=== PATIENT | male | born 1985 | race Asian ===

== ENCOUNTER 2020-12-10 02:54 | Emergency (ER) | payer OTHER ==
[~2020-12-10] VITALS: Ht 165.1 cm; Wt 69.5 kg
[2020-12-10] MEDS ORDERED: ALLO100T PO (03:22)
[2020-12-10] MEDS ORDERED: INDO-16 PO (03:23)
[2020-12-10 07:39] LABS: BASO % 0.2 % (0.0-1.0); EOS # 0.1 10^3/uL (0.0-0.5); EOS % 1.4 % (0.0-3.0); HEMATOCRIT 41.1 % (42.0-52.0); LYMPH # 1.9 10^3/uL (1.5-5.0); LYMPH % 20.3 % (24.0-44.0); MEAN CORPUSCULAR HEMOGLOBIN 30.4 pg (27.0-33.0); MEAN CORPUSCULAR HGB CONC 34.1 g/dl (32.0-36.5); MEAN CORPUSCULAR VOLUME 89.2 fl (80.0-96.0); MONO # 0.7 10^3/uL (0.0-0.8); MONO % 7.6 % (0.0-5.0); NEUTROPHILS # 6.4 10^3/uL (1.5-8.5); NEUTROPHILS % 70.1 % (36.0-66.0); PLATELET COUNT, AUTOMATED 199 10^3/uL (150-450); RED BLOOD COUNT 4.61 10^6/uL (4.30-6.10); WHITE BLOOD COUNT 9.2 10^3/uL (4.0-10.0)
[2020-12-10] MEDS ORDERED: PRED20TA PO (07:55)
[2020-12-10 08:01] LABS: BLOOD UREA NITROGEN 9 MG/DL (7-18); CARBON DIOXIDE LEVEL 29 MEQ/L (21-32); CHLORIDE LEVEL 109 MEQ/L (98-107); CREATININE FOR GFR 1.05 MG/DL (0.70-1.30); GLOMERULAR FILTRATION RATE > 60.0 (>60); GLUCOSE, FASTING 101 MG/DL (70-100); POTASSIUM SERUM 4.5 MEQ/L (3.5-5.1); SODIUM LEVEL 144 MEQ/L (136-145); URIC ACID 7.2 MG/DL (3.5-7.2)
--- OUTSIDE RECORDS SUMMARY | 2020-12-10 08:05 | CCD ---
Author Author [facility] Address Unknown Phone Unavailable Support Name Relationship Address Phone [facility] Next Of Kin [address] [place] [address] Unavailable Re-disclosure Warning The records that you are about to access may contain information from federally-assisted alcohol or drug abuse programs. If such information is present, then the following federally mandated warning applies: This information has been disclosed to you from records protected by federal confidentiality rules (42 CFR part 2). The federal rules prohibit you from making any further disclosure of this information unless further disclosure is expressly permitted by the written consent of the person to whom it pertains or as otherwise permitted by 42 CFR part 2. A general authorization for the release of medical or other information is NOT sufficient for this purpose. The Federal rules restrict any use of the information to criminally investigate or prosecute any alcohol or drug abuse patient.The records that you are about to access may contain highly sensitive health information, the redisclosure of which is protected by Article 27-F of the [facility] Public Health law. If you continue you may have access to information: Regarding HIV / AIDS; Provided by facilities licensed or operated by the [facility] Office of Mental Health; or Provided by the [facility] Office for People With Developmental Disabilities. If such information is present, then the following [facility] mandated warning applies: This information has been disclosed to you from confidential records which are protected by state law. State law prohibits you from making any further disclosure of this information without the specific written consent of the person to whom it pertains, or as otherwise permitted by law. Any unauthorized further disclosure in violation of state law may result in a fine or long-term sentence or both. A general authorization for the release of medical or other information is NOT sufficient authorization for further disc losure. Insurance Providers Payer name Policy type / Coverage type Policy ID Covered alliance party ID Covered alliance party's relationship to yee Policy Yee Plan Information [facility] ACTIVE DUTY [id number]
[2020-12-10] MEDS: predniSONE 20 MG TAB PO ONE (08:18)
[2020-12-10 10:18] VITALS: BP 112/82
== END 2020-12-10 10:20 | disposition home or self-care (01) ==
LOC: M ED 02:54
DX: M10.9 Gout, unspecified (principal); Z79.899 Other long term (current) drug therapy

== ENCOUNTER 2020-12-30 21:16 | Emergency (ER) | payer OTHER ==
[~2020-12-30] VITALS: Ht 170.2 cm; Wt 68.3 kg
[~2020-12-30 21:16] MED LIST: ALLO100T PO; INDO-16 PO; PRED20TA PO
--- OUTSIDE RECORDS SUMMARY | 2020-12-30 21:30 | CCD ---
Author Author [facility] Address Unknown Phone Unavailable Support Name Relationship Address Phone [facility] Next Of Kin [address] [place] [address] Unavailable Re-disclosure Warning The records that you [...] is protected by Article 27-F of the [facility] Public Health law. If you continue you may have access to information: Regarding HIV / AIDS; Provided by facilities licensed or operated by the [facility] Office of Mental Health; or Provided by the [facility] Office for People With Developmental Disabilities. If such information is present, then the following [facility] mandated warning applies: This information has been [...] law may result in a fine or snf sentence or both. A general authorization for the release of medical or other information is NOT sufficient authorization for further disc losure. Insurance Providers Payer name Policy type / Coverage type Policy ID Covered constitution party ID Covered constitution party's relationship to yee Policy Yee Plan Information [facility] ACTIVE DUTY [id number]
[2020-12-30 22:28] LABS: BASO # 0.1 10^3/uL (0.0-0.2); BASO % 0.5 % (0.0-1.0); EOS # 0.2 10^3/uL (0.0-0.5); EOS % 2.3 % (0.0-3.0); HEMATOCRIT 43.7 % (42.0-52.0); HEMOGLOBIN 14.4 g/dl (13.5-17.5); LYMPH # 2.6 10^3/uL (1.5-5.0); LYMPH % 27.5 % (24.0-44.0); MEAN CORPUSCULAR HEMOGLOBIN 29.7 pg (27.0-33.0); MEAN CORPUSCULAR VOLUME 90.1 fl (80.0-96.0); MONO # 0.6 10^3/uL (0.0-0.8); MONO % 6.6 % (0.0-5.0); NEUTROPHILS # 5.9 10^3/uL (1.5-8.5); NEUTROPHILS % 62.9 % (36.0-66.0); PLATELET COUNT, AUTOMATED 213 10^3/uL (150-450); RED BLOOD COUNT 4.85 10^6/uL (4.30-6.10); WHITE BLOOD COUNT 9.4 10^3/uL (4.0-10.0)
[2020-12-30] MEDS ORDERED: INDOMETHACIN 25 MG CAP PO ONE (22:30)
[2020-12-30 22:45] LABS: ERYTHROCYTE SEDIMENTATION RATE 6 mm/hr (0-15)
--- OUTSIDE RECORDS SUMMARY | 2020-12-30 22:48 | CCD ---
Author Author [facility] Address Unknown Phone Unavailable Support Name Relationship Address Phone [facility] Next Of Kin [address] [place] [address] Unavailable Re-disclosure Warning The records that you [...] is protected by Article 27-F of the [facility] Public Health law. If you continue you may have access to information: Regarding HIV / AIDS; Provided by facilities licensed or operated by the [facility] Office of Mental Health; or Provided by the [facility] Office for People With Developmental Disabilities. If such information is present, then the following [facility] mandated warning applies: This information has [...] law may result in a fine or fci sentence or both. A general authorization for the release of medical or other information is NOT sufficient authorization for further disc losure. Insurance Providers Payer name Policy type / Coverage type Policy ID Covered alliance party ID Covered alliance party's relationship to yee Policy Yee Plan Information [facility] ACTIVE DUTY [id number]
[2020-12-30 23:03] LABS: ALBUMIN 4.2 GM/DL (3.2-5.2); BILIRUBIN,DIRECT 0.1 MG/DL (0.0-0.2); BILIRUBIN,TOTAL 0.5 MG/DL (0.2-1.0); C REACTIVE PROTEIN QUANTITATIV 0.81 MG/DL (0.00-0.30); TOTAL PROTEIN 7.5 GM/DL (6.4-8.2); URIC ACID 9.8 MG/DL (3.5-7.2)
--- NOTE | 2020-12-30 23:15 | REPVR ---
PROCEDURE INFORMATION: Exam: XR Left Foot Exam date and time: 12/30/2020 10:24 PM Age: 35 years old Clinical indication: Top mid foot pain, no mechanism of injury, HX gout. TECHNIQUE: Imaging protocol: XR Left foot. Views: 3 or more views. COMPARISON: No relevant prior studies available. FINDINGS: Bones/joints: There is no fracture, dislocation, or bony destructive changes. The joint spaces and alignment are preserved. No erosive or bony proliferative changes are noted. There is a posterior calcaneal spur at the insertion of the Achilles tendon, which is compatible with a left Achilles enthesopathy. There is a well-corticated accessory ossicle medial to the navicular, which represents an os navicularis. Soft tissues: No soft tissue tophi are identified. IMPRESSION: No acute findings in the left foot. Electronically signed by: Andre Robles On 12/30/2020 23:15:08 PM
[2020-12-30] MEDS ORDERED: COLCHICINE 0.6 MG TABLET PO ONE (23:30)
[2020-12-30] MEDS ORDERED: NORCO, ANEXSIA 5/325MG TABLET (HYDROcodone/ACETAMINOPHEN) PO ONE (23:45)
--- NOTE | 2020-12-30 23:54 | REPVR ---
PROCEDURE INFORMATION: Exam: CT Left Lower Extremity Without Contrast, Foot Exam date and time: 12/30/2020 11:26 PM Age: 35 years old Clinical indication: Pain; Foot; Left; Additional info: Pain out of proportion, mid foot pain, no mechanism of injury, HX of gout TECHNIQUE: Imaging protocol: CT of the Left lower extremity without contrast was performed. Exam focused on the foot. Radiation optimization: All CT scans at this facility use at least one of these dose optimization techniques: automated exposure control; mA and/or kV adjustment per patient size (includes targeted exams where dose is matched to clinical indication); or iterative reconstruction. COMPARISON: CR Foot, complete LEFT 12/30/2020 10:18 PM FINDINGS: Bones/joints: There is no fracture, dislocation, or bony destructive changes involving the left foot. There is no CT evidence for a bone tumor. The joint spaces and alignment are preserved. No arthropathy is noted. There is a well-corticated accessory ossicle medial to the navicular, which represents an os navicularis. Incidental note is made of a small well corticated accessory ossicle adjacent to the anterior process of the calcaneus, which represents an os calcaneus secundarius. Soft tissues: There is a posterior calcaneal spur at the insertion of the Achilles tendon, which is compatible with a left Achilles enthesopathy. No soft tissue fluid collection or soft tissue tophi are seen. No soft tissue gas is present. IMPRESSION: No acute findings in the left foot. Electronically signed by: Andre Robles On 12/30/2020 23:54:29 PM
[2020-12-31] MEDS ORDERED: NAPR-837 PO (00:09)
[2020-12-31] MEDS ORDERED: COLC0.6T47 PO (00:09)
[2020-12-31] MEDS ORDERED: HYDR-3713 PO (01:29)
[2020-12-31 01:45] VITALS: BP 130/76
== END 2020-12-31 02:02 | disposition home or self-care (01) ==
LOC: M ED 21:16
DX: M79.672 Pain in left foot (principal); M10.9 Gout, unspecified

== ENCOUNTER 2021-06-24 16:01 | Emergency (ER) | payer OTHER ==
[~2021-06-24] VITALS: Ht 170.2 cm; Wt 65.5 kg
[~2021-06-24 16:01] MED LIST changes: +COLC0.6T47 PO; +HYDR-3713 PO; +NAPR-837 PO
[2021-06-24 17:44] LABS: BASO % 0.3 % (0.0-1.0); EOS # 0.1 10^3/uL (0.0-0.5); EOS % 1.2 % (0.0-3.0); HEMATOCRIT 41.6 % (42.0-52.0); HEMOGLOBIN 14.3 g/dl (13.5-17.5); LYMPH # 2.2 10^3/uL (1.5-5.0); MEAN CORPUSCULAR HEMOGLOBIN 30.8 pg (27.0-33.0); MEAN CORPUSCULAR HGB CONC 34.4 g/dl (32.0-36.5); MEAN CORPUSCULAR VOLUME 89.5 fl (80.0-96.0); MONO # 0.5 10^3/uL (0.0-0.8); MONO % 7.1 % (2.0-8.0); NEUTROPHILS # 4.7 10^3/uL (1.5-8.5); NEUTROPHILS % 62.3 % (36.0-66.0); PLATELET COUNT, AUTOMATED 197 10^3/uL (150-450); RED BLOOD COUNT 4.65 10^6/uL (4.30-6.10); WHITE BLOOD COUNT 7.5 10^3/uL (4.0-10.0)
[2021-06-24 18:22] LABS: BLOOD UREA NITROGEN 8 MG/DL (7-18); CALCIUM LEVEL 8.9 MG/DL (8.5-10.1); CARBON DIOXIDE LEVEL 31 MEQ/L (21-32); CHLORIDE LEVEL 107 MEQ/L (98-107); CREATININE FOR GFR 0.82 MG/DL (0.70-1.30); GLOMERULAR FILTRATION RATE > 60.0 (>60); GLUCOSE, FASTING 90 MG/DL (70-100); POTASSIUM SERUM 4.3 MEQ/L (3.5-5.1); SODIUM LEVEL 144 MEQ/L (136-145); URIC ACID 4.4 MG/DL (3.5-7.2)
--- NOTE | 2021-06-24 19:27 | REP ---
INDICATION: pain /swelling COMPARISON: None. TECHNIQUE: Four views right ankle. FINDINGS: There is no evidence of acute fracture, dislocation, or intrinsic bone disease.The ankle mortise is anatomic. IMPRESSION: No fracture or dislocation. <Electronically signed by Darian Rajput > 06/24/21 2099
[2021-06-24] MEDS ORDERED: INDO50CA91 PO (19:50)
[2021-06-24] MEDS ORDERED: INDOMETHACIN 25 MG CAP PO ONE (19:50)
[2021-06-24 20:21] VITALS: BP 122/79
== END 2021-06-24 20:24 | disposition home or self-care (01) ==
LOC: M ED 16:01
DX: M10.9 Gout, unspecified (principal); Z79.899 Other long term (current) drug therapy

== ENCOUNTER → 2021-07-30 | Outpatient (CLI) | payer OTHER ==
[~2021-07-30] MED LIST changes: +INDO50CA91 PO
== END ==
LOC: M WUC 11:52
PROVIDERS: ATTEND Internal Medicine
DX: M1A.9XX0 Chronic gout, unspecified, without tophus (tophi) (principal)

== ENCOUNTER 2021-09-28 08:24 | Emergency (ER) | payer OTHER ==
[~2021-09-28] VITALS: Ht 170.2 cm; Wt 65.5 kg
[2021-09-28] MEDS ORDERED: CELE1CAP7 PO (08:28)
--- OUTSIDE RECORDS SUMMARY | 2021-09-28 08:30 | CCD ---
Author Author [facility] Organization [facility] Address Unknown Phone Unavailable Care Team Providers Care Ring Conductor Name Role Phone Yoanna Siu Unavailable PROBLEMS Type Condition ICD9-CM Code [id number] Code Onset Dates Condition S tatus W/U Status Risk SNOMED Code Notes Problem Chronic gout without tophus, unspecified cause, unspecified site M1A.9XX0 Active confirmed [id number] ALLERGIES No Known Allergies ENCOUNTERS from 1984 to 2021-08-24 Encounter Location Date Provider Diagnosis [facility] Rheumatology [address] [facility] [phone] [place] [address] Jul, Yoanna Siu Chronic gout without tophus, unspecified cause, unspecified site M1A.9XX0 ; Chronic gout of right ankle, unspecified cause M1A.0710 ; Osteoarthritis of ankle and foot, 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 No Points 0 Interpretation Negative Tobacco Use: Question Answer Notes Are you a: never smoker REASON FOR REFERRAL No Information VITAL SIGNS Weight 146.6 lbs Jul, Weight-kg 66.5 kg Jul, Height 67 in Jul, BMI 22.96 kg/m2 Jul, Heart Rate 78 /min Jul, Respiratory Rate 16 /min Jul, Temperature 98.4 degrees Fahrenheit Jul, Oximetry 97 Jul, Blood pressure systolic 110 mm Hg Jul, Blood pressure diastolic 70 mm Hg Jul, MEDICATIONS Medication SIG (Take, Route, Frequency, Duration) Notes Start Da te End Date Status Allopurinol 100 MG 1 tablet Orally three times a day Not-Taking Allopurinol 100 MG 2 tablets Orally Once a day for 30 days Feb, Active Celecoxib 100 MG 1 capsule with food Orally Once a day for 30 day(s) Active predniSONE 20 MG 2 tablets Orally Once a day for 5 day(s) Jan, Not-Taking Colchicine 0.6 MG 1 tablet Orally Once a day for 30 days 2 9 Feb, 2021 Active Allopurinol 300 MG 1 tablet Orally Once a day Feb, Active PROCEDURES No Information RESULTS No Results REASON FOR VISIT Kb presents today for follow up. He did have a flare about a month ago as he hadn't been taking his medication. He feels the flare came because he works out too much. He saw on-call at [facility], restarted his medication and impro ed. No changes with right hip from last visit. MEDICAL (GENERAL) HISTORY Type Description Date Medical History Flat Foot Medical History Gout Medical History Tuberculosis of the lung Medical History Nonspecified reaction to tub erculin skin test without active tuberculosis Surgical History None per patient 01/30/2021 Hospitalization History None per patient 01/30/2021 Hospitalization History [facility] ER for gout 06/2021 Goals Section No Information Health Concerns No Information MEDICAL EQUIPMENT No Information MENTAL STATUS No Information FUNCTIONAL STATUS No Information ASSESSMENTS Encounter Date Diagnosis Assessment Notes Treatment Notes Treatm ent Clinical Notes Jul, Chronic gout without tophus, unspecified cause, unspecified site (ICD-10 - M1A.9XX0) Clinical presentation consistent with poorly controlled gout, who presents w/ a chronic gout flare, in need of more aggressive intervention. - Discussed the importance of lifestyle interventions in detail and medications to adequate treat gout. - Continue Colchicine 0.6 mg daily; will increase Allopurinol 400 mg daily to 500 mg daily. - Continue Celecoxib 100 mg daily given the high gastric ulcer risk and the safety profile of the medication. He would benefit from a low dose GODINEZ-2 inhibitor, the benefits of the Celebrex outweigh the risks of the medication. - He was agreeable and expressed understanding of the plan. All questions and concerns were addressed. Jul, Chronic gout of right ankle, unspecified cause (ICD-10 - M1A.0710) Improvement in the right ankle s/p corticosteroid injection (on 04/06/2021); will monitor the symptomatology closely. Jul, Osteoarthritis of ankle and foot, unspecified laterality (ICD-10 - M19.079) Previously reviewed x-ray of right foot/ankle (01/08/2021); the patient has degenerative changes in the ankles and feet. Continue the performance of the ankle/foot exercises for approximately 5 minutes daily. Jul, Trochanteric bursitis, unspecified laterality (I CD-10 - M70.60) Clinical presentation consistent w/ trochanteric bursitis of the right hip. Strongly encouraged the performance of the exercises (3x/week for approximately 15 minutes). If there is no significant improvement with the exercises, then will consider physical therapy for improvement in the symptomatology. PLAN OF TREATMENT Medication Medication Name Sig Start Date Stop Date Celecoxib 100 MG 1 capsule with food Orally Once a day for 30 da y(s) Allopurinol 300 MG 1 tablet Orally Once a day Feb, Allopurinol 100 MG 2 tablets Orally Once a day for 30 days 2020 Treatment Notes Assessment Notes Clinical Notes Chronic gout without tophus, unspecified cause, unspecified site Clinical presentation consistent with poorly controlled gout, who presents w/ a chronic gout flare, in need of more aggressive intervention.- Discussed the importance of lifestyle interventions in detail and medications to adequate treat gout.- Continue Colchicine 0.6 mg daily; will increase Allopurinol 400 mg daily to 500 mg daily.- Continue Celecoxib 100 mg daily given the high gastric ulcer risk and the safety profile of the medication. He would benefit from a low dose GODINEZ-2 inhibitor, the benefits of the Celebrex outweigh the risks of the medication.- He was agreeable and expressed understanding of the plan. All questions and concerns were addressed. Chronic gout of right ankle, unspecified cause Improvement in the right ankle s/p corticosteroid injection (on 04/06/2021); will monitor the symptomatology closely. Osteoarthritis of ankle and foot, unspecified laterality Previously reviewed x-ray of right foot/ankle (01/08/2021); the patient has degenerative changes in the ankles and feet. Continue the performance of the ankle/foot exercises for approximately 5 minutes daily. Trochanteric bursitis, unspecified laterality Clinical presentation consistent w/ trochanteric bursitis of the right hip. Strongly encouraged the performance of the exercises (3x/week for approximately 15 minutes). If there is no significant improvement with the exercises, then will consider physical therapy for improvement in the symptomatology. Next Appt Details Provider Name:Yoanna Siu, 2021-11-06 10:15:00 AM, [address] [place] [address], , [place], [place], [facility], Insurance Providers Payer Name Payer Address Payer Phone Insured Name Patient Relati onship to Insured Coverage Start Date Coverage End Date [facility] ACTIVE DUTY S HEALTH INSURANCE [address] [facility] [address] KB MCCLELLAN self
--- OUTSIDE RECORDS SUMMARY | 2021-09-28 08:30 | CCD ---
Author Author [facility] Organization [facility] Address Unknown Phone Unavailable Care Team Providers Care Clay Digger Name Role Phone Yoanna Siu PROBLEMS Type Condition ICD9-CM Code [id number] Code Onset Dates Condition S tatus W/U Status Risk SNOMED Code Notes Problem Chronic gout without tophus, unspecified cause, unspecified site M1A.9XX0 Active confirmed [id number] ALLERGIES No Known Allergies ENCOUNTERS from 1984 to 2021-09-01 Encounter Location Date Provider Diagnosis [facility] Rheumatology [address] [facility] [phone] [place] [address] Aug, Yoanna Siu Chronic gout without tophus, unspecified cause, unspecified site M1A.9XX0 IMMUNIZATIONS No Information SOCIAL HISTORY Tobacco Use: [...] REASON FOR REFERRAL No Information VITAL SIGNS No information MEDICATIONS Medication SIG (Take, Route, Frequency, Duration) Notes Start Da te End Date Status Allopurinol 100 MG 1 tablet Orally three times a day Not-Taking Allopurinol 100 MG 2 tablets Orally Once a day for 30 days Feb, Active Celecoxib 100 MG 1 capsule with food Orally Once a day for 30 day(s) Active predniSONE 20 MG 1 tablet Orally Once a day for 5 days Aug, Active predniSONE 20 MG 2 tablets Orally Once a day for 5 day(s) Jan, Not-Taking Colchicine 0.6 MG 1 tablet Orally Once a day for 30 days 2 9 Feb, 2021 Active Allopurinol 300 MG 1 tablet Orally Once a day 15 Feb, 2021 Active Celecoxib 200 MG 1 capsule with food Orally Once a day for 30 da y(s) Aug, Active PROCEDURES No Information RESULTS No Results REASON FOR VISIT Requesting phone management or sooner visit MEDICAL (GENERAL) HISTORY Type Description Date Medical History Flat Foot Medical History Gout Medical History Tuberculosis of the lung Medical History Nonspecified reaction to tub erculin skin test without active tuberculosis Surgical History None per patient 01/30/2021 Hospitalization History None per patient 01/30/[address] [facility] ER for gout 06/2021 Goals Section No Information Health Concerns No Information MEDICAL EQUIPMENT No Information MENTAL STATUS No Information FUNCTIONAL STATUS No Information ASSESSMENTS Encounter Date Diagnosis Assessment Notes Treatment Notes Treatm ent Clinical Notes Aug, Chronic gout without tophus, unspecified cause, unspecified site (ICD-10 - M1A.9XX0) PLAN OF TREATMENT Medication Medication Name Sig Start Date Stop Date Celecoxib 100 MG 1 capsule with food Orally Once a day for 30 da y(s) Allopurinol 300 MG 1 tablet Orally Once a day Feb, Celecoxib 200 MG 1 capsule with food Orally Once a day fo r 30 day(s) Aug, Allopurinol 100 MG 2 tablets Orally Once a day for 30 days 15 2020 predniSONE 20 MG 1 tablet Orally Once a day for 5 days Aug, 021 Next Appt Details Provider Name:Yoanna Siu, 2021-11-06 10:15:00 AM, [address] [place] [address], , [place], [place], [facility], Insurance Providers Payer Name Payer Address Payer Phone Insured Name Patient Relati onship to Insured Coverage Start Date Coverage End Date [facility] ACTIVE D[employer] S [employer] INSURANCE [address] [place] [address] MUKUND MCCLELLAN self
--- OUTSIDE RECORDS SUMMARY | 2021-09-28 08:30 | CCD ---
Author Author [facility] Organization [facility] Address Unknown Phone Unavailable Care Team Providers Care Wheel Borer Name Role Phone Yoanna Siu PROBLEMS Type Condition ICD9-CM Code [id number] Code Onset Dates Condition S tatus W/U Status Risk SNOMED Code Notes Problem Chronic gout without tophus, unspecified cause, unspecified site M1A.9XX0 Active confirmed [id number] ALLERGIES No Known Allergies ENCOUNTERS from 1984 to 2021-07-20 Encounter Location Date Provider Diagnosis [facility] Rheumatology [address] [facility] [phone] [place] [address] Jun, [facility] IMMUNIZATIONS No Information SOCIAL HISTORY Tobacco Use: [...] Status Allopurinol 100 MG 1 tablet Orally Once a day for 30 day(s) Feb, Active Allopurinol 300 MG 1 tablet Orally Once a day for 30 day(s) Feb, Active Colchicine 0.6 MG 1 tablet Orally Once a day for 30 days 2 9 Feb, 2021 Active predniSONE 20 MG 2 tablets Orally Once a day for 5 day(s) Jan, Active Celecoxib 100 MG 1 capsule with food Orally Once a day for 30 day(s) Active Allopurinol 100 MG 1 tablet Orally three times a day Active PROCEDURES No Information RESULTS No Results REASON FOR VISIT Lab Order MEDICAL (GENERAL) HISTORY Type Description Date Medical History Flat Foot Medical History Gout Medical History Tuberculosis of the lung Medical History Nonspecified reaction to tub erculin skin test without active tuberculosis Surgical History None per patient 01/30/2021 Hospitalization History None per patient 01/30/2021 Goals Section No Information Health Concerns No Information MEDICAL EQUIPMENT No Information MENTAL STATUS No Information FUNCTIONAL STATUS No Information ASSESSMENTS No Information PLAN OF TREATMENT Medication Medication Name Sig Start Date Stop Date Celecoxib 100 MG 1 capsule with food Orally Once a day for 30 da y(s) Next Appt Details Provider Name:Yoanna Siu, 2021-08-04 04:45:00 PM, [address] [place] [address], [place], [place], [facility] [phone] Insurance Providers Payer Name Payer Address Payer Phone Insured Name Patient Relati onship to Insured Coverage Start Date Coverage End Date [facility] ACTIVE D[employer] S HE[employer] INSURANCE [address] [place] [address] MUKUND MCCLELLAN self
--- OUTSIDE RECORDS SUMMARY | 2021-09-28 08:30 | CCD ---
Author Author [facility] Organization [facility] Address Unknown Phone Unavailable Care Team Providers Care Welcome Wagon Host/Hostess Name Role Phone Yoanna Siu Unavailable PROBLEMS Type Condition ICD9-CM Code [id number] Code Onset Dates Condition S tatus W/U Status Risk SNOMED Code Notes Problem Chronic gout without tophus, unspecified cause, unspecified site M1A.9XX0 Active confirmed [id number] ALLERGIES No Known Allergies ENCOUNTERS from 1984 to 2021-08-03 Encounter Location Date Provider Diagnosis [facility] Rheumatology [address] [facility] [phone] [place] [address] 13 Jul, 2021 [facility] IMMUNIZATIONS No Information SOCIAL HISTORY Tobacco Use: [...] Information RESULTS No Results REASON FOR VISIT 08/04/21 reschedule appt MEDICAL (GENERAL) HISTORY Type Description Date Medical [...] 30 da y(s) Next Appt Details Provider Name:Yoannaprashant Siu, 2021-08-07 03:15:00 PM, [address] [place] [address], [place], [place], [facility], Insurance Providers Payer Name Payer Address Payer Phone Insured Name Patient Relati onship to Insured Coverage Start Date Coverage End Date [facility] ACTIVE D[employer] S [employer] INSURANCE [address] [place] [address] MUKUND MCCLELLAN self
--- OUTSIDE RECORDS SUMMARY | 2021-09-28 08:30 | CCD ---
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 Role Phone Yoanna Siu PROBLEMS Type Condition ICD9-CM Code [id number] Code Onset Dates Condition S tatus W/U Status Risk SNOMED Code Notes Problem Chronic gout without tophus, unspecified cause, unspecified site [id number] Active confirmed [id number] ALLERGIES No Known Allergies ENCOUNTERS from 1984 to 2021-08-24 Encounter Location Date Provider Diagnosis [facility] [address] [facility] [phone] [place] [address] March, Yoanna Siu Chronic gout without tophus, unspecified [...] FOR REFERRAL No Information VITAL SIGNS Weight 153.8 lbs March, Weight-kg 69.7 kg March, Height 67 in March, BMI 24.09 kg/m2 March, Heart Rate 88 /min March, Respiratory Rate 16 /min March, Temperature 99.2 degrees Fahrenheit March, Oximetry 96 March, MEDICATIONS Medication SIG (Take, Route, Frequency, Duration) [...] Orally Once a day Feb, Active PROCEDURES from 1984 to 2021-08-24 Procedure Date Ordered Result Body Site DRAIN/INJECT,JOINT/BURSA (intermediate joint) 2021-04-06 N/ A Med: Rheum Kenalog 40mg/1mL IA Triamcinolone 2021-04-06 N/A RESULTS No Results REASON FOR VISIT Urgent visit. Had a [address] january and developed right ankle and right grea t toe pain. Rates a 7. Also has pain in right hip from a fall - see HIP fall r isk screening. MEDICAL (GENERAL) HISTORY Type Description Date Medical History Flat Foot Medical History Gout Medical History Tuberculosis of the lung Medical History Nonspecified reaction to tub erculin skin test without active tuberculosis Surgical History None per patient 01/30/2021 Hospitalization History None per patient 01/30/2021 Hospitalization History [facility] ER for gout 06/2021 Goals Section No Information Health Concerns No Information MEDICAL EQUIPMENT No Information MENTAL STATUS No Information FUNCTIONAL STATUS No Information ASSESSMENTS Encounter Date Diagnosis Assessment Notes Treatment Notes Treatm ent Clinical Notes March, Chronic gout without tophus, unspecified cause, unspecified site (ICD-10 - M1A.9XX0) Clinical presentation consistent with poorly controlled gout, who presents w/ a chronic gout flare, in need of more aggressive intervention. - Discussed the importance of lifestyle interventions in detail and medications to adequate treat gout. - Continue Colchicine 0.6 mg daily and Allopurinol 400 mg daily; will plan to increase the allopurinol dosage, at the next visit. - Will initiate Celecoxib 100 mg daily given the high gastric ulcer risk and the safety profile of the medication. He would benefit from a low dose GODINEZ-2 inhibitor, the benefits of the Celebrex outweigh the risks of the medication.. - He was agreeable and expressed understanding of the plan. All questions and concerns were addressed. March, Chronic gout of right ankle, unspecified cause (ICD-10 - M1A.0710) Given the significant pain, recommended the corticosteroid injection of the right ankle. Side effects, risks, and benefits discussed with the patient. He was agreeable to the procedure. March, Osteoarthritis of ankle and foot, unspecified laterality (ICD-10 - M19.079) Previously reviewed x-ray of right foot/ankle (01/08/2021); the patient has degenerative changes in the ankles and feet. Continue the performance of the ankle/foot exercises for approximately 5 minutes daily. March, Trochanteric bursitis, unspecified laterality (I CD-10 - M70.60) Clinical presentation consistent w/ trochanteric bursitis of the right hip. Information and exercises will be provided today. Recommend exercises (3x/week for approximately 15 minutes). If there is no significant improvement with the exercises, then will consider physical therapy for improvement in the symptomatology. March, Other Please perform t rochanteric exercises for 3x/week for 15 minutes. PLAN OF TREATMENT Medication Medication Name Sig [...] adequate treat gout.- Continue Colchicine 0.6 mg daily and Allopurinol 400 mg daily; will plan to increase the allopurinol dosage, at the next visit.- Will initiate Celecoxib 100 mg daily given the high gastric ulcer risk and the safety profile of the medication. He would benefit from a low dose GODINEZ-2 inhibitor, the benefits of the Celebrex outweigh the risks of the medication..- He was agreeable and expressed understanding of the plan. All questions and concerns were addressed. Chronic gout of right ankle, unspecified cause Given the significant pain, recommended the corticosteroid injection of the right ankle. Side effects, risks, and benefits discussed with the patient. He was agreeable to the procedure. Osteoarthritis of ankle and foot, unspecified laterality Previously reviewed x-ray of right foot/ankle (01/08/2021); the patient has degenerative changes in the ankles and feet. Continue the performance of the ankle/foot exercises for approximately 5 minutes daily. Trochanteric bursitis, unspecified laterality Clinical presentation consistent w/ trochanteric bursitis of the right hip. Information and exercises will be provided today. Recommend exercises (3x/week for approximately 15 minutes). If there is no significant improvement with the exercises, then will consider physical therapy for improvement in the symptomatology. Next Appt Details Provider Name:Yoanna M Siu, 2021-11-06 10:15:00 AM, [address] [place] [address], [place], [place], [facility] [phone] Insurance Providers Payer Name Payer Address Payer Phone Insured Name Patient Relati onship to Insured Coverage Start Date Coverage End Date [facility] [employer] [id number] [facility] [id number] [place] self
--- OUTSIDE RECORDS SUMMARY | 2021-09-28 08:30 | CCD ---
Author Author [facility] Organization [facility] Address Unknown Phone Unavailable Support Name Relationship Address Phone ARMY Next Of Kin [address] [phone] KATELYN BLACKMAN Next Of Kin [address] [place] [address] [facility] Next Of Kin [address] [place] [id number] Unavailable KATELYN BLACKMAN ECON [address] [place] [address] Unavailable Re-disclosure Warning The records that you [...] is protected by Article 27-F of the [facility] Public Health law. If you continue you may have access to information: Regarding HIV / AIDS; Provided by facilities licensed or operated by the [facility] Office of Mental Health; or Provided by the [facility] Office for People With Developmental Disabilities. If such information is present, then the following [facility] mandated warning applies: This information has been [...] law may result in a fine or chcf sentence or both. A general authorization for the release of medical or other information is NOT sufficient authorization for further disc losure. Encounters Encounter Providers Location Date Indications Data Source(s ) [place] [address] [facility] [facility] [address] 08/31/2021 12:00:00 AM EDT eCW1 ([facility]) Outpatient [address] [facility] [place] [address] 08/07/2021 12:00:00 AM EDT eCW1 ([facility]) [place] [address] [facility] [facility] [address] 08/03/2021 12:00:00 AM EDT eCW1 ([facility]) [place] [address] [facility] [facility] [address] 07/20/2021 12:00:00 AM EDT eCW1 ([facility]) [place] [address] [facility] [address] 06/22/2021 12:00:00 AM EDT eCW1 ([facility]) [place] [address] [facility] [facility] [address] 06/18/2021 12:00:00 AM EDT eCW1 ([facility]) [place] [address] [facility] [facility] [address] 05/05/2021 12:00:00 AM EDT eCW1 ([facility]) [place] [address] [facility] [facility] [address] 04/06/2021 12:00:00 AM EDT eCW1 ([facility]) [place] [address] [facility] [address] 04/06/2021 12:00:00 AM EDT eCW1 ([facility]) [place] [address] [facility] [address] 03/18/2021 12:00:00 AM EDT eCW1 ([facility]) [place] [address] [facility] [address] 03/09/2021 12:00:00 AM EDT eCW1 ([facility]) [place] [address] [facility] [facility] [address] 03/05/2021 12:00:00 AM EDT eCW1 ([facility]) Unknown [address] [facility] [address] 02/09/2021 12:00:00 AM EDT eCW1 ([facility]) [place] [address] [facility] [facility] [address] 01/30/2021 12:00:00 AM EST eCW1 ([facility]) Immunizations Vaccine Date Status Description Data Source(s) COVID-19 VACCINE Pfizer 02/11/2021 12:00:00 AM EDT completed [facility] Vaccine Series Complete: NOThis Data was Submitted to [facility] Via [employer]. Medications Medication Brand Name Start Date Product Form Dose Route Admi nistrative Instructions Pharmacy Instructions Status Indications Reaction Description Data Source(s) Prednisone 20 MG Oral Tablet predniSONE 20 MG predniSONE 20 MG 08/31/2021 12:00:00 AM EDT 1.0 {tablet} active pr edniSONE 20 MG [facility] celecoxib 200 MG Oral Capsule Celecoxib 200 MG Celecoxib 200 MG 08/31/2021 12:00:00 AM EDT 1.0 {capsule_with_food} active Celecoxib 200 MG [facility] celecoxib 100 MG Oral Capsule Celecoxib 100 MG Celecoxib 100 MG 04/06/2021 12:00:00 AM EDT 1.0 {capsule_with_food} active Celecoxib 100 MG [facility] celecoxib 100 MG Oral Capsule Celecoxib 100 MG Celecoxib 100 MG 04/06/2021 12:00:00 AM EDT 1.0 {capsule_with_food} active Celecoxib 100 MG [facility]CW[facility] celecoxib 100 MG Oral Capsule Celecoxib 100 MG Celecoxib 100 MG 04/06/2021 12:00:00 AM EDT 1.0 {capsule_with_food} active Celecoxib 100 MG [facility]CW1 [facility]) celecoxib 100 MG Oral Capsule Celecoxib 100 MG Celecoxib 100 MG 04/06/2021 12:00:00 AM EDT 1.0 {capsule_with_food} active Celecoxib 100 MG eCW1 [facility]) Colchicine 0.6 MG Oral Tablet Colchicine 0.6 MG 03/19/2021 12:00:00 AM EDT 1.0 {tablet} active Colchicine 0.6 MG eCW1 ([facility]) Colchicine 0.6 MG Oral Tablet Colchicine 0.6 MG 03/19/2021 12:00:00 AM EDT 1.0 {tablet} active Colchicine 0.6 MG eCW1 ([facility]) Colchicine 0.6 MG Oral Tablet Colchicine 0.6 MG 03/19/2021 12:00:00 AM EDT 1.0 {tablet} active Colchicine 0.6 MG eCW1 ([facility]) Colchicine 0.6 MG Oral Tablet Colchicine 0.6 MG 03/19/2021 12:00:00 AM EDT 1.0 {tablet} active Colchicine 0.6 MG eCW1 ([facility]) Colchicine 0.6 MG Oral Tablet Colchicine 0.6 MG 03/19/2021 12:00:00 AM EDT 1.0 {tablet} active Colchicine 0.6 MG eCW1 ([facility]) Colchicine 0.6 MG Oral Tablet Colchicine 0.6 MG 03/19/2021 12:00:00 AM EDT 1.0 {tablet} active Colchicine 0.6 MG eCW1 ([facility]) Colchicine 0.6 MG Oral Tablet Colchicine 0.6 MG 03/19/2021 12:00:00 AM EDT 1.0 {tablet} active Colchicine 0.6 MG eCW1 ([facility]) Colchicine 0.6 MG Oral Tablet Colchicine 0.6 MG 03/19/2021 12:00:00 AM EDT 1.0 {tablet} active Colchicine 0.6 MG eCW1 ([facility]) Colchicine 0.6 MG Oral Tablet Colchicine 0.6 MG 03/19/2021 12:00:00 AM EDT 1.0 {tablet} active Colchicine 0.6 MG eCW1 ([facility]) Colchicine 0.6 MG Oral Tablet Colchicine 0.6 MG 03/19/2021 12:00:00 AM EDT 1.0 {tablet} active Colchicine 0.6 MG eCW1 ([facility]) Colchicine 0.6 MG Oral Tablet Colchicine 0.6 MG 03/19/2021 12:00:00 AM EDT 1.0 {tablet} active Colchicine 0.6 MG eCW1 ([facility]) Allopurinol 100 MG Oral Tablet Allopurinol 100 MG 03/05/2021 12:00: 00 AM EDT 1.0 {tablet} active Allopurinol 100 MG eCW1 ([facility]) Allopurinol 300 MG Oral Tablet Allopurinol 300 MG 03/05/2021 12:00: 00 AM EDT 1.0 {tablet} active Allopurinol 300 MG eCW1 ([facility]) Allopurinol 100 MG Oral Tablet Allopurinol 100 MG 03/05/2021 12:00: 00 AM EDT 2.0 {tablets} active Allopurinol 100 MG eCW1 ([facility]) Allopurinol 100 MG Oral Tablet Allopurinol 100 MG 03/05/2021 12:00: 00 AM EDT 1.0 {tablet} active Allopurinol 100 MG eCW1 ([facility]) Allopurinol 300 MG Oral Tablet Allopurinol 300 MG 03/05/2021 12:00: 00 AM EDT 1.0 {tablet} active Allopurinol 300 MG eCW1 ([facility]) Allopurinol 100 MG Oral Tablet Allopurinol 100 MG 03/05/2021 12:00: 00 AM EDT 2.0 {tablets} active Allopurinol 100 MG eCW1 ([facility]) Allopurinol 300 MG Oral Tablet Allopurinol 300 MG 03/05/2021 12:00: 00 AM EDT 1.0 {tablet} active Allopurinol 300 MG eCW1 ([facility]) Allopurinol 300 MG Oral Tablet Allopurinol 300 MG 03/05/2021 12:00: 00 AM EDT 1.0 {tablet} active Allopurinol 300 MG eCW1 ([facility]) Allopurinol 100 MG Oral Tablet Allopurinol 100 MG 03/05/2021 12:00: 00 AM EDT 1.0 {tablet} active Allopurinol 100 MG eCW1 ([facility]) Allopurinol 300 MG Oral Tablet Allopurinol 300 MG 03/05/2021 12:00: 00 AM EDT 1.0 {tablet} active Allopurinol 300 MG eCW1 ([facility]) Allopurinol 300 MG Oral Tablet Allopurinol 300 MG 03/05/2021 12:00: 00 AM EDT 1.0 {tablet} active Allopurinol 300 MG eCW1 ([facility]) Allopurinol 300 MG Oral Tablet Allopurinol 300 MG 03/05/2021 12:00: 00 AM EDT 1.0 {tablet} active Allopurinol 300 MG eCW1 ([facility]) Allopurinol 300 MG Oral Tablet Allopurinol 300 MG 03/05/2021 12:00: 00 AM EDT 1.0 {tablet} active Allopurinol 300 MG eCW1 ([facility]) Allopurinol 300 MG Oral Tablet Allopurinol 300 MG 03/05/2021 12:00: 00 AM EDT 1.0 {tablet} active Allopurinol 300 MG eCW1 ([facility]) Allopurinol 100 MG Oral Tablet Allopurinol 100 MG 03/05/2021 12:00: 00 AM EDT 1.0 {tablet} active Allopurinol 100 MG eCW1 ([facility]) Allopurinol 100 MG Oral Tablet Allopurinol 100 MG 03/05/2021 12:00: 00 AM EDT 1.0 {tablet} active Allopurinol 100 MG eCW1 ([facility]) Allopurinol 100 MG Oral Tablet Allopurinol 100 MG 03/05/2021 12:00: 00 AM EDT 1.0 {tablet} active Allopurinol 100 MG eCW1 ([facility]) Allopurinol 300 MG Oral Tablet Allopurinol 300 MG 03/05/2021 12:00: 00 AM EDT 1.0 {tablet} active Allopurinol 300 MG eCW1 ([facility]) Allopurinol 300 MG Oral Tablet Allopurinol 300 MG 03/05/2021 12:00: 00 AM EDT 1.0 {tablet} active Allopurinol 300 MG eCW1 ([facility]) Allopurinol 300 MG Oral Tablet Allopurinol 300 MG 03/05/2021 12:00: 00 AM EDT 1.0 {tablet} active Allopurinol 300 MG eCW1 ([facility]) Allopurinol 100 MG Oral Tablet Allopurinol 100 MG 03/05/2021 12:00: 00 AM EDT 2.0 {tablets} active Allopurinol 100 MG eCW1 ([facility]) Allopurinol 300 MG Oral Tablet Allopurinol 300 MG 03/05/2021 12:00: 00 AM EDT 1.0 {tablet} active Allopurinol 300 MG eCW1 ([facility]) Allopurinol 100 MG Oral Tablet Allopurinol 100 MG 03/05/2021 12:00: 00 AM EDT 1.0 {tablet} active Allopurinol 100 MG eCW1 ([facility]) Allopurinol 100 MG Oral Tablet Allopurinol 100 MG 03/05/2021 12:00: 00 AM EDT 1.0 {tablet} active Allopurinol 100 MG eCW1 ([facility]) Allopurinol 100 MG Oral Tablet Allopurinol 100 MG 03/05/2021 12:00: 00 AM EDT 1.0 {tablet} active Allopurinol 100 MG eCW1 ([facility]) Allopurinol 100 MG Oral Tablet Allopurinol 100 MG 03/05/2021 12:00: 00 AM EDT 1.0 {tablet} active Allopurinol 100 MG eCW1 ([facility]) Prednisone 20 MG Oral Tablet predniSONE 20 MG predniSONE 20 MG 01/30/2021 12:00:00 AM EST 2.0 {tablets} suspended predniSONE 20 MG eCW1 ([facility]) Prednisone 20 MG Oral Tablet PredniSONE 20 MG PredniSONE 20 MG 01/30/2021 12:00:00 AM EST 2.0 {tablets} active P redniSONE 20 MG eCW1 ([facility]) Prednisone 20 MG Oral Tablet predniSONE 20 MG predniSONE 20 MG 01/30/2021 12:00:00 AM EST 2.0 {tablets} active p redniSONE 20 MG eCW1 ([facility]) Prednisone 20 MG Oral Tablet predniSONE 20 MG predniSONE 20 MG 01/30/2021 12:00:00 AM EST 2.0 {tablets} active p redniSONE 20 MG eCW1 ([facility]) Prednisone 20 MG Oral Tablet PredniSONE 20 MG PredniSONE 20 MG 01/30/2021 12:00:00 AM EST 2.0 {tablets} active P redniSONE 20 MG eCW1 ([facility]) Prednisone 20 MG Oral Tablet predniSONE 20 MG predniSONE 20 MG 01/30/2021 12:00:00 AM EST 2.0 {tablets} active p redniSONE 20 MG eCW1 ([facility]) Prednisone 20 MG Oral Tablet PredniSONE 20 MG PredniSONE 20 MG 01/30/2021 12:00:00 AM EST 2.0 {tablets} active P redniSONE 20 MG eCW1 ([facility]) Prednisone 20 MG Oral Tablet PredniSONE 20 MG PredniSONE 20 MG 01/30/2021 12:00:00 AM EST 2.0 {tablets} active P redniSONE 20 MG eCW1 ([facility]) Prednisone 20 MG Oral Tablet predniSONE 20 MG predniSONE 20 MG 01/30/2021 12:00:00 AM EST 2.0 {tablets} suspended predniSONE 20 MG eCW1 ([facility]) Prednisone 20 MG Oral Tablet predniSONE 20 MG predniSONE 20 MG 01/30/2021 12:00:00 AM EST 2.0 {tablets} suspended predniSONE 20 MG eCW1 ([facility]) Prednisone 20 MG Oral Tablet PredniSONE 20 MG PredniSONE 20 MG 01/30/2021 12:00:00 AM EST 2.0 {tablets} active P redniSONE 20 MG eCW1 ([facility]) Prednisone 20 MG Oral Tablet PredniSONE 20 MG PredniSONE 20 MG 01/30/2021 12:00:00 AM EST 2.0 {tablets} active P redniSONE 20 MG eCW1 ([facility]) Prednisone 20 MG Oral Tablet predniSONE 20 MG predniSONE 20 MG 01/30/2021 12:00:00 AM EST 2.0 {tablets} active p redniSONE 20 MG eCW1 ([facility]) Prednisone 20 MG Oral Tablet predniSONE 20 MG predniSONE 20 MG 01/30/2021 12:00:00 AM EST 2.0 {tablets} active p redniSONE 20 MG eCW1 ([facility]) Prednisone 20 MG Oral Tablet PredniSONE 20 MG PredniSONE 20 MG 01/30/2021 12:00:00 AM EST 2.0 {tablets} active P redniSONE 20 MG eCW1 ([facility]) Insurance Providers Payer name Policy type / Coverage type Policy ID Covered democrat ID Covered democrat's relationship to yee Policy Yee Plan Information [facility] [id number] Problems, Conditions, and Diagnoses Code Display Name Description Problem Type Effective Dates Data Source(s) [id number] Chronic gout without tophus, unspecified cause, unspecified site Problem 01/30/2021 12:00:00 AM EST eCW1 [facility]) Surgeries/Procedures Procedure Description Date Indications Data Source(s) Med: Rheum Kenalog 40mg/1mL [place] Triamcinolone 12:00:00 AM EDT eCW1 [facility]) ARTHROCENTESIS ASPIR&/INJECTION INTERM JT/BURSA 2020 12:00:00 AM EDT eCW1 ([facility]) Results No Information Social History Code Duration Value Status Description Data Source(s ) Smoking 08/07/2021 12:00:00 AM EDT Never Smoker completed Never S moker eCW1 ([facility]) Smoking 08/07/2021 12:00:00 AM EDT Never Smoker completed Never S moker eCW1 ([facility]) Smoking 08/07/2021 12:00:00 AM EDT Never Smoker completed Never S moker eCW1 ([facility]) Smoking 04/06/2021 12:00:00 AM EDT Never Smoker completed Never S moker eCW1 ([facility]) Smoking 04/06/2021 12:00:00 AM EDT Never Smoker completed Never S moker eCW1 ([facility]) Smoking 04/06/2021 12:00:00 AM EDT Never Smoker completed Never S moker eCW1 ([facility]) Smoking 04/06/2021 12:00:00 AM EDT Never Smoker completed Never S moker eCW1 ([facility]) Smoking 04/06/2021 12:00:00 AM EDT Never Smoker completed Never S moker eCW1 ([facility]) Smoking 04/06/2021 12:00:00 AM EDT Never Smoker completed Never S moker eCW1 ([facility]) Smoking 04/06/2021 12:00:00 AM EDT Never Smoker completed Never S moker eCW1 ([facility]) Smoking 03/05/2021 12:00:00 AM EDT Never Smoker completed Never S moker eCW1 ([facility]) Smoking 03/05/2021 12:00:00 AM EDT Never Smoker completed Never S moker eCW1 ([facility]) Smoking 03/05/2021 12:00:00 AM EDT Never Smoker completed Never S moker eCW1 ([facility]) Smoking 02/06/2021 12:00:00 AM EDT Never Smoker completed Never S moker eCW1 ([facility]) Smoking 02/06/2021 12:00:00 AM EDT Never Smoker completed Never S moker eCW1 ([facility]) Vital Signs ID Date Data Source UNK Name Value Range Interpretation Code Description Data Source(s) Body weight 146.6 [lb_av] 146.6 [lb_av] eCW1 ([facility]) Body weight 66.5 kg 66.5 kg eCW1 [facility] Body height 67 [in_i] 67 [in_i] eCW1 [facility] Body mass index (BMI) [Ratio] 22.96 kg/m2 22.96 kg/m2 eCW1 ([facility]) Heart rate 78 /min 78 /min eCW1 ([facility]) Respiratory rate 16 /min 16 /min eCW1 ([facility]) Body temperature 98.4 [degF] 98.4 [degF] eCW1 ( [facility]) Systolic blood pressure 110 mm[Hg] 110 mm[Hg] e CW1 ([facility]) Diastolic blood pressure 70 mm[Hg] 70 mm[Hg] eCW1 ([facility]) Body weight 153.8 [lb_av] 153.8 [lb_av] eCW1 ([facility]) Body weight 69.7 kg 69.7 kg eCW1 [facility] Body height 67 [in_i] 67 [in_i] eCW1 [facility] Body mass index (BMI) [Ratio] 24.09 kg/m2 24.09 kg/m2 eCW1 ([facility]) Heart rate 88 /min 88 /min eCW1 ([facility]) Respiratory rate 16 /min 16 /min eCW1 ([facility]) Body temperature 99.2 [degF] 99.2 [degF] eCW1 ( [facility] Body weight 153.8 [lb_av] 153.8 [lb_av] eCW1 ([facility]) Body weight 69.7 kg 69.7 kg eCW1 [facility] Body height 67 [in_i] 67 [in_i] eCW1 [facility] Body mass index (BMI) [Ratio] 24.09 kg/m2 24.09 kg/m2 eCW1 ([facility]) Heart rate 88 /min 88 /min eCW1 ([facility]) Respiratory rate 16 /min 16 /min eCW1 ([facility]) Body temperature 99.2 [degF] 99.2 [degF] eCW1 ( [facility]) Body temperature 98.7 [degF] 98.7 [degF] eCW1 ( [facility]) Systolic blood pressure 114 mm[Hg] 114 mm[Hg] e CW1 ([facility]) Body weight 150.6 [lb_av] 150.6 [lb_av] eCW1 ([facility]) Body weight 68.3 kg 68.3 kg eCW1 [facility] Body height 67 [in_i] 67 [in_i] eCW1 [facility] Body mass index (BMI) [Ratio] 23.58 kg/m2 23.58 kg/m2 eCW1 ([facility]) Heart rate 86 /min 86 /min eCW1 ([facility]) Respiratory rate 16 /min 16 /min eCW1 ([facility]) Diastolic blood pressure 76 mm[Hg] 76 mm[Hg] eCW1 ([facility]) Body weight 146.4 [lb_av] 146.4 [lb_av] eCW1 ([facility]) Body weight 66.4 kg 66.4 kg eCW1 [facility] Body height 67 [in_i] 67 [in_i] eCW1 [facility] Body mass index (BMI) [Ratio] 22.93 kg/m2 22.93 kg/m2 eCW1 ([facility]) Heart rate 95 /min 95 /min eCW1 ([facility]) Respiratory rate 18 /min 18 /min eCW1 ([facility]) Body temperature 98.2 [degF] 98.2 [degF] eCW1 ( [facility]) Systolic blood pressure 122 mm[Hg] 122 mm[Hg] e CW1 ([facility]) Diastolic blood pressure 80 mm[Hg] 80 mm[Hg] eCW1 [facility] Patient Treatment Plan of Care Planned Activity Planned Date Details Description Data Source (s) celecoxib 200 MG Oral Capsule 08/31/2021 12:00:00 AM EDT eCW1 ([facility]) Prednisone 20 MG Oral Tablet 08/31/2021 12:00:00 AM EDT eCW1 ([facility]) celecoxib 100 MG Oral Capsule 04/06/2021 12:00:00 AM EDT eCW1 ([facility]) celecoxib 100 MG Oral Capsule 04/06/2021 12:00:00 AM EDT eCW1 ([facility]) celecoxib 100 MG Oral Capsule 04/06/2021 12:00:00 AM EDT eCW1 ([facility]) celecoxib 100 MG Oral Capsule 04/06/2021 12:00:00 AM EDT eCW1 ([facility]) Colchicine 0.6 MG Oral Tablet 03/19/2021 12:00:00 AM EDT eCW1 ([facility]) Allopurinol 300 MG Oral Tablet 03/05/2021 12:00:00 AM EDT eCW1 ([facility]) Allopurinol 100 MG Oral Tablet 03/05/2021 12:00:00 AM EDT eCW1 ([facility]) Allopurinol 300 MG Oral Tablet 03/05/2021 12:00:00 AM EDT eCW1 ([facility]) Allopurinol 100 MG Oral Tablet 03/05/2021 12:00:00 AM EDT eCW1 ([facility]) Allopurinol 300 MG Oral Tablet 03/05/2021 12:00:00 AM EDT eCW1 ([facility]) Allopurinol 100 MG Oral Tablet 03/05/2021 12:00:00 AM EDT eCW1 ([facility]) Allopurinol 100 MG Oral Tablet 03/05/2021 12:00:00 AM EDT eCW1 ([facility]) Allopurinol 300 MG Oral Tablet 03/05/2021 12:00:00 AM EDT eCW1 ([facility]) Allopurinol 100 MG Oral Tablet 03/05/2021 12:00:00 AM EDT eCW1 ([facility]) Allopurinol 300 MG Oral Tablet 03/05/2021 12:00:00 AM EDT eCW1 ([facility]) Allopurinol 100 MG Oral Tablet 03/05/2021 12:00:00 AM EDT eCW1 ([facility]) Allopurinol 300 MG Oral Tablet 03/05/2021 12:00:00 AM EDT eCW1 ([facility]) Prednisone 20 MG Oral Tablet 01/30/2021 12:00:00 AM EST eCW1 ([facility])
[2021-09-28 09:19] LABS: BASO % 0.2 % (0.0-1.0); EOS # 0.1 10^3/uL (0.0-0.5); EOS % 1.7 % (0.0-3.0); HEMATOCRIT 47.5 % (42.0-52.0); HEMOGLOBIN 15.8 g/dl (13.5-17.5); LYMPH # 2.1 10^3/uL (1.5-5.0); LYMPH % 33.3 % (24.0-44.0); MEAN CORPUSCULAR HEMOGLOBIN 30.1 pg (27.0-33.0); MEAN CORPUSCULAR HGB CONC 33.3 g/dl (32.0-36.5); MEAN CORPUSCULAR VOLUME 90.5 fl (80.0-96.0); MONO # 0.3 10^3/uL (0.0-0.8); MONO % 5.2 % (2.0-8.0); NEUTROPHILS # 3.8 10^3/uL (1.5-8.5); NEUTROPHILS % 59.4 % (36.0-66.0); PLATELET COUNT, AUTOMATED 181 10^3/uL (150-450); RED BLOOD COUNT 5.25 10^6/uL (4.30-6.10); WHITE BLOOD COUNT 6.3 10^3/uL (4.0-10.0)
--- OUTSIDE RECORDS SUMMARY | 2021-09-28 09:34 | CCD ---
Author Author [facility] Organization [facility] Address Unknown Phone Unavailable Support Name Relationship Address Phone ARMY Next Of Kin [address] [phone] KATELYN BLACKMAN Next Of Kin [address] [place] [phone] [place] Next Of Kin [address] [address] [phone] Unavailable KATELYN BLACKMAN ECON [address] [place] [phone] Unavailable Re-disclosure Warning The records that you [...] protected by Article 27-F of the [facility] Public Health law. If you continue you may have access to information: Regarding HIV / AIDS; Provided by facilities licensed or operated by the [facility] Office of Mental Health; or Provided by the [facility] Office for People With Developmental Disabilities. If such information is present, then the following [facility] mandated warning applies: This information has [...] law may result in a fine or senior care sentence or both. A general authorization for the release of medical or other information is NOT sufficient authorization for further disc losure. Encounters Encounter Providers Location Date Indications Data Source(s ) [place] [address] [facility] [address] 08/31/2021 12:00:00 AM EDT eCW1 ([facility]) [place] [address] [facility] [place] [address] 08/07/2021 12:00:00 AM EDT eCW1 ([facility]) [place] [address] [facility] [address] 08/03/2021 12:00:00 AM EDT eCW1 ([facility]) [place] [address] [facility] [address] 07/20/2021 12:00:00 AM EDT eCW1 ([facility]) [place] [address] [facility] [address] 06/22/2021 12:00:00 AM EDT eCW1 ([facility]) [place] [address] [facility] [address] 06/18/2021 12:00:00 AM EDT eCW1 ([facility]) [place] [address] [facility] [address] 05/05/2021 12:00:00 AM EDT eCW1 ([facility]) [place] [address] [facility] [address] 04/06/2021 12:00:00 AM EDT eCW1 ([facility]) [place] [address] [facility] [address] 04/06/2021 12:00:00 AM EDT eCW1 ([facility]) [place] [address] [facility] [address] 03/18/2021 12:00:00 AM EDT eCW1 ([facility]) [place] [address] [facility] [address] 03/09/2021 12:00:00 AM EDT eCW1 ([facility]) [place] [address] [facility] [address] 03/05/2021 12:00:00 AM EDT eCW1 ([facility]) Unknown [address] [facility] [address] 02/09/2021 12:00:00 AM EDT eCW1 ([facility]) [place] [address] [facility] [address] 01/30/2021 12:00:00 AM EST eCW1 ([facility]) Immunizations Vaccine Date Status Description Data Source(s) COVID-19 VACCINE Pfizer 02/11/2021 12:00:00 AM EDT completed [facility] Vaccine Series Complete: NOThis Data was Submitted to [facility]. Medications Medication Brand Name Start Date Product Form Dose Route Admi nistrative Instructions Pharmacy Instructions Status Indications Reaction Description Data Source(s) Prednisone 20 MG Oral Tablet predniSONE 20 MG predniSONE 20 MG 08/31/2021 12:00:00 AM EDT 1.0 {tablet} active pr edniSONE 20 MG eCW1 ([facility]) celecoxib 200 MG Oral Capsule Celecoxib 200 MG Celecoxib 200 MG 08/31/2021 12:00:00 AM EDT 1.0 {capsule_with_food} active Celecoxib 200 MG eCW1 ([facility]) celecoxib 100 MG Oral Capsule Celecoxib 100 MG Celecoxib 100 MG 04/06/2021 12:00:00 AM EDT 1.0 {capsule_with_food} active Celecoxib 100 MG eCW1 ([facility]) celecoxib 100 MG Oral Capsule Celecoxib 100 MG Celecoxib 100 MG 04/06/2021 12:00:00 AM EDT 1.0 {capsule_with_food} active Celecoxib 100 MG eCW1 ([facility]) celecoxib 100 MG Oral Capsule Celecoxib 100 MG Celecoxib 100 MG 04/06/2021 12:00:00 AM EDT 1.0 {capsule_with_food} active Celecoxib 100 MG eCW1 ([facility]) celecoxib 100 MG Oral Capsule Celecoxib 100 MG Celecoxib 100 MG 04/06/2021 12:00:00 AM EDT 1.0 {capsule_with_food} active Celecoxib 100 MG eCW1 ([facility]) Colchicine 0.6 MG Oral Tablet Colchicine 0.6 MG 03/19/2021 12:00:00 AM EDT 1.0 {tablet} active Colchicine 0.6 MG eCW1 ([facility]) Colchicine 0.6 MG Oral Tablet Colchicine 0.6 MG 03/19/2021 12:00:00 AM EDT 1.0 {tablet} active Colchicine 0.6 MG eCW1 ([facility]) Colchicine 0.6 MG Oral Tablet Colchicine 0.6 MG 03/19/2021 12:00:00 AM EDT 1.0 {tablet} active Colchicine 0.6 MG eCW1 ([facility]) Colchicine 0.6 MG Oral Tablet Colchicine 0.6 MG 03/19/2021 12:00:00 AM EDT 1.0 {tablet} active Colchicine 0.6 MG eCW1 ([facility]) Colchicine 0.6 MG Oral Tablet Colchicine 0.6 MG 03/19/2021 12:00:00 AM EDT 1.0 {tablet} active Colchicine 0.6 MG eCW1 ([facility]) Colchicine 0.6 MG Oral Tablet Colchicine 0.6 MG 03/19/2021 12:00:00 AM EDT 1.0 {tablet} active Colchicine 0.6 MG eCW1 ([facility]) Colchicine 0.6 MG Oral Tablet Colchicine 0.6 MG 03/19/2021 12:00:00 AM EDT 1.0 {tablet} active Colchicine 0.6 MG eCW1 ([facility]) Colchicine 0.6 MG Oral Tablet Colchicine 0.6 MG 03/19/2021 12:00:00 AM EDT 1.0 {tablet} active Colchicine 0.6 MG eCW1 ([facility]) Colchicine 0.6 MG Oral Tablet Colchicine 0.6 MG 03/19/2021 12:00:00 AM EDT 1.0 {tablet} active Colchicine 0.6 MG eCW1 ([facility]) Colchicine 0.6 MG Oral Tablet Colchicine 0.6 MG 03/19/2021 12:00:00 AM EDT 1.0 {tablet} active Colchicine 0.6 MG eCW1 ([facility]) Colchicine 0.6 MG Oral Tablet Colchicine 0.6 MG 03/19/2021 12:00:00 AM EDT 1.0 {tablet} active Colchicine 0.6 MG eCW1 ([facility]) Allopurinol 100 MG Oral Tablet Allopurinol 100 MG 03/05/2021 12:00: 00 AM EDT 1.0 {tablet} active Allopurinol 100 MG eCW1 ([facility]) Allopurinol 300 MG Oral Tablet Allopurinol 300 MG 03/05/2021 12:00: 00 AM EDT 1.0 {tablet} active Allopurinol 300 MG eCW1 ([facility]) Allopurinol 100 MG Oral Tablet Allopurinol 100 MG 03/05/2021 12:00: 00 AM EDT 2.0 {tablets} active Allopurinol 100 MG eCW1 ([facility]) Allopurinol 100 MG Oral Tablet Allopurinol 100 MG 03/05/2021 12:00: 00 AM EDT 1.0 {tablet} active Allopurinol 100 MG eCW1 ([facility]) Allopurinol 300 MG Oral Tablet Allopurinol 300 MG 03/05/2021 12:00: 00 AM EDT 1.0 {tablet} active Allopurinol 300 MG eCW1 ([facility]) Allopurinol 100 MG Oral Tablet Allopurinol 100 MG 03/05/2021 12:00: 00 AM EDT 2.0 {tablets} active Allopurinol 100 MG eCW1 ([facility]) Allopurinol 300 MG Oral Tablet Allopurinol 300 MG 03/05/2021 12:00: 00 AM EDT 1.0 {tablet} active Allopurinol 300 MG eCW1 ([facility]) Allopurinol 300 MG Oral Tablet Allopurinol 300 MG 03/05/2021 12:00: 00 AM EDT 1.0 {tablet} active Allopurinol 300 MG eCW1 ([facility]) Allopurinol 100 MG Oral Tablet Allopurinol 100 MG 03/05/2021 12:00: 00 AM EDT 1.0 {tablet} active Allopurinol 100 MG eCW1 ([facility]) Allopurinol 300 MG Oral Tablet Allopurinol 300 MG 03/05/2021 12:00: 00 AM EDT 1.0 {tablet} active Allopurinol 300 MG eCW1 ([facility]) Allopurinol 300 MG Oral Tablet Allopurinol 300 MG 03/05/2021 12:00: 00 AM EDT 1.0 {tablet} active Allopurinol 300 MG eCW1 ([facility]) Allopurinol 300 MG Oral Tablet Allopurinol 300 MG 03/05/2021 12:00: 00 AM EDT 1.0 {tablet} active Allopurinol 300 MG eCW1 ([facility]) Allopurinol 300 MG Oral Tablet Allopurinol 300 MG 03/05/2021 12:00: 00 AM EDT 1.0 {tablet} active Allopurinol 300 MG eCW1 ([facility]) Allopurinol 300 MG Oral Tablet Allopurinol 300 MG 03/05/2021 12:00: 00 AM EDT 1.0 {tablet} active Allopurinol 300 MG eCW1 ([facility]) Allopurinol 100 MG Oral Tablet Allopurinol 100 MG 03/05/2021 12:00: 00 AM EDT 1.0 {tablet} active Allopurinol 100 MG eCW1 ([facility]) Allopurinol 100 MG Oral Tablet Allopurinol 100 MG 03/05/2021 12:00: 00 AM EDT 1.0 {tablet} active Allopurinol 100 MG eCW1 ([facility]) Allopurinol 100 MG Oral Tablet Allopurinol 100 MG 03/05/2021 12:00: 00 AM EDT 1.0 {tablet} active Allopurinol 100 MG eCW1 ([facility]) Allopurinol 300 MG Oral Tablet Allopurinol 300 MG 03/05/2021 12:00: 00 AM EDT 1.0 {tablet} active Allopurinol 300 MG eCW1 ([facility]) Allopurinol 300 MG Oral Tablet Allopurinol 300 MG 03/05/2021 12:00: 00 AM EDT 1.0 {tablet} active Allopurinol 300 MG eCW1 ([facility]) Allopurinol 300 MG Oral Tablet Allopurinol 300 MG 03/05/2021 12:00: 00 AM EDT 1.0 {tablet} active Allopurinol 300 MG eCW1 ([facility]) Allopurinol 100 MG Oral Tablet Allopurinol 100 MG 03/05/2021 12:00: 00 AM EDT 2.0 {tablets} active Allopurinol 100 MG eCW1 ([facility]) Allopurinol 300 MG Oral Tablet Allopurinol 300 MG 03/05/2021 12:00: 00 AM EDT 1.0 {tablet} active Allopurinol 300 MG eCW1 ([facility]) Allopurinol 100 MG Oral Tablet Allopurinol 100 MG 03/05/2021 12:00: 00 AM EDT 1.0 {tablet} active Allopurinol 100 MG eCW1 ([facility]) Allopurinol 100 MG Oral Tablet Allopurinol 100 MG 03/05/2021 12:00: 00 AM EDT 1.0 {tablet} active Allopurinol 100 MG eCW1 ([facility]) Allopurinol 100 MG Oral Tablet Allopurinol 100 MG 03/05/2021 12:00: 00 AM EDT 1.0 {tablet} active Allopurinol 100 MG eCW1 ([facility]) Allopurinol 100 MG Oral Tablet Allopurinol 100 MG 03/05/2021 12:00: 00 AM EDT 1.0 {tablet} active Allopurinol 100 MG eCW1 ([facility]) Prednisone 20 MG Oral Tablet predniSONE 20 MG predniSONE 20 MG 01/30/2021 12:00:00 AM EST 2.0 {tablets} suspended predniSONE 20 MG eCW1 ([facility]) Prednisone 20 MG Oral Tablet PredniSONE 20 MG PredniSONE 20 MG 01/30/2021 12:00:00 AM EST 2.0 {tablets} active P redniSONE 20 MG eCW1 ([facility]) Prednisone 20 MG Oral Tablet predniSONE 20 MG predniSONE 20 MG 01/30/2021 12:00:00 AM EST 2.0 {tablets} active p redniSONE 20 MG eCW1 ([facility]) Prednisone 20 MG Oral Tablet predniSONE 20 MG predniSONE 20 MG 01/30/2021 12:00:00 AM EST 2.0 {tablets} active p redniSONE 20 MG eCW1 ([facility]) Prednisone 20 MG Oral Tablet PredniSONE 20 MG PredniSONE 20 MG 01/30/2021 12:00:00 AM EST 2.0 {tablets} active P redniSONE 20 MG eCW1 ([facility]) Prednisone 20 MG Oral Tablet predniSONE 20 MG predniSONE 20 MG 01/30/2021 12:00:00 AM EST 2.0 {tablets} active p redniSONE 20 MG eCW1 ([facility]) Prednisone 20 MG Oral Tablet PredniSONE 20 MG PredniSONE 20 MG 01/30/2021 12:00:00 AM EST 2.0 {tablets} active P redniSONE 20 MG eCW1 ([facility]) Prednisone 20 MG Oral Tablet PredniSONE 20 MG PredniSONE 20 MG 01/30/2021 12:00:00 AM EST 2.0 {tablets} active P redniSONE 20 MG eCW1 ([facility]) Prednisone 20 MG Oral Tablet predniSONE 20 MG predniSONE 20 MG 01/30/2021 12:00:00 AM EST 2.0 {tablets} suspended predniSONE 20 MG eCW1 ([facility]) Prednisone 20 MG Oral Tablet predniSONE 20 MG predniSONE 20 MG 01/30/2021 12:00:00 AM EST 2.0 {tablets} suspended predniSONE 20 MG eCW1 ([facility]) Prednisone 20 MG Oral Tablet PredniSONE 20 MG PredniSONE 20 MG 01/30/2021 12:00:00 AM EST 2.0 {tablets} active P redniSONE 20 MG eCW1 ([facility]) Prednisone 20 MG Oral Tablet PredniSONE 20 MG PredniSONE 20 MG 01/30/2021 12:00:00 AM EST 2.0 {tablets} active P redniSONE 20 MG eCW1 ([facility]) Prednisone 20 MG Oral Tablet predniSONE 20 MG predniSONE 20 MG 01/30/2021 12:00:00 AM EST 2.0 {tablets} active p redniSONE 20 MG eCW1 ([facility]) Prednisone 20 MG Oral Tablet predniSONE 20 MG predniSONE 20 MG 01/30/2021 12:00:00 AM EST 2.0 {tablets} active p redniSONE 20 MG eCW1 ([facility]) Prednisone 20 MG Oral Tablet PredniSONE 20 MG PredniSONE 20 MG 01/30/2021 12:00:00 AM EST 2.0 {tablets} active P redniSONE 20 MG eCW1 ([facility]) Insurance Providers Payer name Policy type / Coverage type Policy ID Covered green party ID Covered green party's relationship to yee Policy Yee Plan Information [facility] [id number] Problems, Conditions, and Diagnoses Code Display Name Description Problem Type Effective Dates Data Source(s) [id number].[id number] Chronic gout without tophus, unspecified cause, unspecified site Problem 01/30/2021 12:00:00 AM EST eCW1 ([facility]) Surgeries/Procedures Procedure Description Date Indications Data Source(s) Med: Rheum Kenalog 40mg/1mL IA Triamcinolone 12:00:00 AM EDT eCW1 ([facility]) ARTHROCENTESIS ASPIR&/INJECTION INTERM JT/BURSA 2020 12:00:00 AM EDT eCW1 ([facility]) Results No Information Social History Code Duration Value Status Description Data Source(s ) Smoking 08/07/2021 12:00:00 AM EDT Never Smoker completed Never S moker eCW1 ([facility]) Smoking 08/07/2021 12:00:00 AM EDT Never Smoker completed Never S moker eCW1 ([facility]) Smoking 08/07/2021 12:00:00 AM EDT Never Smoker completed Never S moker eCW1 ([facility]) Smoking 04/06/2021 12:00:00 AM EDT Never Smoker completed Never S moker eCW1 ([facility]) Smoking 04/06/2021 12:00:00 AM EDT Never Smoker completed Never S moker eCW1 ([facility]) Smoking 04/06/2021 12:00:00 AM EDT Never Smoker completed Never S moker eCW1 ([facility]) Smoking 04/06/2021 12:00:00 AM EDT Never Smoker completed Never S moker eCW1 ([facility]) Smoking 04/06/2021 12:00:00 AM EDT Never Smoker completed Never S moker eCW1 ([facility]) Smoking 04/06/2021 12:00:00 AM EDT Never Smoker completed Never S moker eCW1 ([facility]) Smoking 04/06/2021 12:00:00 AM EDT Never Smoker completed Never S moker eCW1 ([facility]) Smoking 03/05/2021 12:00:00 AM EDT Never Smoker completed Never S moker eCW1 ([facility]) Smoking 03/05/2021 12:00:00 AM EDT Never Smoker completed Never S moker eCW1 ([facility]) Smoking 03/05/2021 12:00:00 AM EDT Never Smoker completed Never S moker eCW1 ([facility]) Smoking 02/06/2021 12:00:00 AM EDT Never Smoker completed Never S moker eCW1 ([facility]) Smoking 02/06/2021 12:00:00 AM EDT Never Smoker completed Never S moker eCW1 ([facility]) Vital Signs ID Date Data Source UNK Name Value Range Interpretation Code Description Data Source(s) Body weight 146.6 [lb_av] 146.6 [lb_av] eCW1 ([facility]) Body weight 66.5 kg 66.5 kg eCW1 ([facility]) Body height 67 [in_i] 67 [in_i] eCW1 ([facility]) Heart rate 78 /min 78 /min eCW1 ([facility]) Respiratory rate 16 /min 16 /min eCW1 ([facility]) Body temperature 98.4 [degF] 98.4 [degF] eCW1 ( [facility]) Systolic blood pressure 110 mm[Hg] 110 mm[Hg] e CW1 ([facility]) Diastolic blood pressure 70 mm[Hg] 70 mm[Hg] eCW1 ([facility]) Body mass index (BMI) [Ratio] 22.96 kg/m2 22.96 kg/m2 eCW1 ([facility]) Body weight 153.8 [lb_av] 153.8 [lb_av] eCW1 ([facility]) Body weight 69.7 kg 69.7 kg eCW1 ([facility]) Body height 67 [in_i] 67 [in_i] eCW1 ([facility]) Body mass index (BMI) [Ratio] 24.09 kg/m2 24.09 kg/m2 eCW1 ([facility]) Heart rate 88 /min 88 /min eCW1 ([facility]) Respiratory rate 16 /min 16 /min eCW1 ([facility]) Body temperature 99.2 [degF] 99.2 [degF] eCW1 ( [facility]) Body weight 153.8 [lb_av] 153.8 [lb_av] eCW1 ([facility]) Body weight 69.7 kg 69.7 kg eCW1 ([facility]) Body height 67 [in_i] 67 [in_i] eCW1 ([facility]) Body mass index (BMI) [Ratio] 24.09 kg/m2 24.09 kg/m2 eCW1 ([facility]) Heart rate 88 /min 88 /min eCW1 ([facility]) Respiratory rate 16 /min 16 /min eCW1 ([facility]) Body temperature 99.2 [degF] 99.2 [degF] eCW1 ( [facility]) Body temperature 98.7 [degF] 98.7 [degF] eCW1 ( [facility]) Body weight 150.6 [lb_av] 150.6 [lb_av] eCW1 ([facility]) Systolic blood pressure 114 mm[Hg] 114 mm[Hg] e CW1 ([facility]) Body height 67 [in_i] 67 [in_i] eCW1 ([facility]) Body mass index (BMI) [Ratio] 23.58 kg/m2 23.58 kg/m2 eCW1 ([facility]) Heart rate 86 /min 86 /min eCW1 ([facility]) Respiratory rate 16 /min 16 /min eCW1 ([facility]) Diastolic blood pressure 76 mm[Hg] 76 mm[Hg] eCW1 ([facility]) Body weight 68.3 kg 68.3 kg eCW1 ([facility]) Respiratory rate 18 /min 18 /min eCW1 ([facility]) Body weight 146.4 [lb_av] 146.4 [lb_av] eCW1 ([facility]) Body weight 66.4 kg 66.4 kg eCW1 ([facility]) Body height 67 [in_i] 67 [in_i] eCW1 ([facility]) Body mass index (BMI) [Ratio] 22.93 kg/m2 22.93 kg/m2 eCW1 ([facility]) Heart rate 95 /min 95 /min eCW1 ([facility]) Body temperature 98.2 [degF] 98.2 [degF] eCW1 ( [facility]) Systolic blood pressure 122 mm[Hg] 122 mm[Hg] e CW1 ([facility]) Diastolic blood pressure 80 mm[Hg] 80 mm[Hg] eCW1 ([facility]) Patient Treatment Plan of Care Planned Activity Planned Date Details Description Data Source (s) celecoxib 200 MG Oral Capsule 08/31/2021 12:00:00 AM EDT eCW1 ([facility]) Prednisone 20 MG Oral Tablet 08/31/2021 12:00:00 AM EDT eCW1 ([facility]) celecoxib 100 MG Oral Capsule 04/06/2021 12:00:00 AM EDT eCW1 ([facility]) celecoxib 100 MG Oral Capsule 04/06/2021 12:00:00 AM EDT eCW1 ([facility]) celecoxib 100 MG Oral Capsule 04/06/2021 12:00:00 AM EDT eCW1 ([facility]) celecoxib 100 MG Oral Capsule 04/06/2021 12:00:00 AM EDT eCW1 ([facility]) Colchicine 0.6 MG Oral Tablet 03/19/2021 12:00:00 AM EDT eCW1 ([facility]) Allopurinol 300 MG Oral Tablet 03/05/2021 12:00:00 AM EDT eCW1 ([facility]) Allopurinol 100 MG Oral Tablet 03/05/2021 12:00:00 AM EDT eCW1 ([facility]) Allopurinol 300 MG Oral Tablet 03/05/2021 12:00:00 AM EDT eCW1 ([facility]) Allopurinol 100 MG Oral Tablet 03/05/2021 12:00:00 AM EDT eCW1 ([facility]) Allopurinol 300 MG Oral Tablet 03/05/2021 12:00:00 AM EDT eCW1 ([facility]) Allopurinol 100 MG Oral Tablet 03/05/2021 12:00:00 AM EDT eCW1 ([facility]) Allopurinol 100 MG Oral Tablet 03/05/2021 12:00:00 AM EDT eCW1 ([facility]) Allopurinol 300 MG Oral Tablet 03/05/2021 12:00:00 AM EDT eCW1 ([facility]) Allopurinol 100 MG Oral Tablet 03/05/2021 12:00:00 AM EDT eCW1 ([facility]) Allopurinol 300 MG Oral Tablet 03/05/2021 12:00:00 AM EDT eCW1 ([facility]) Allopurinol 100 MG Oral Tablet 03/05/2021 12:00:00 AM EDT eCW1 ([facility]) Allopurinol 300 MG Oral Tablet 03/05/2021 12:00:00 AM EDT eCW1 ([facility]) Prednisone 20 MG Oral Tablet 01/30/2021 12:00:00 AM EST eCW1 ([facility])
[2021-09-28] MEDS ORDERED: PANTOPRAZOLE 40MG VIAL (C9113 PER 1) IV ONE (09:45)
[2021-09-28] MEDS ORDERED: GI COCKTAIL 50ML BTL(HYOSCYAMINE/MAALOX/LIDOCAINE VISCOUS)(1:3:1) PO ONE (09:45)
[2021-09-28 09:56] LABS: ALBUMIN 4.2 GM/DL (3.2-5.2); ALT/SGPT 25 U/L (12-78); BILIRUBIN,DIRECT 0.2 MG/DL (0.0-0.2); BILIRUBIN,TOTAL 0.6 MG/DL (0.2-1.0); BLOOD UREA NITROGEN 16 MG/DL (7-18); CALCIUM LEVEL 9.5 MG/DL (8.5-10.1); CARBON DIOXIDE LEVEL 31 MEQ/L (21-32); CHLORIDE LEVEL 107 MEQ/L (98-107); CK-MB VALUE MASS < 1.0 NG/ML (<3.6); CPK CREATINE PHOSPHOKINASE 96 U/L (39-308); CREATININE FOR GFR 1.01 MG/DL (0.70-1.30); GLOMERULAR FILTRATION RATE > 60.0 (>60); GLUCOSE, FASTING 95 MG/DL (70-100); LIPASE 134 U/L (73-393); MB/CK RELATIVE INDEX 1.04 (< OR =4); POTASSIUM SERUM 4.1 MEQ/L (3.5-5.1); SODIUM LEVEL 140 MEQ/L (136-145); TOTAL PROTEIN 7.6 GM/DL (6.4-8.2); TROPONIN I < 0.02 NG/ML (< 0.10)
--- NOTE | 2021-09-28 10:02 | REP ---
INDICATION: CHEST PAIN. COMPARISON: None. TECHNIQUE: AP portable seated exam. FINDINGS: The lung pagan are well inflated. There is no effusion, acute infiltrate, atelectasis or pneumothorax. No pulmonary nodule or parenchymal masses are seen. The heart, mediastinal and hilar contours are normal. There is no free air under the diaphragm. The bony thorax is unremarkable. IMPRESSION: 1. No acute cardiopulmonary change, negative AP portable chest. <Electronically signed by Bari Huerta > 09/28/21 0999
[2021-09-28] MEDS ORDERED: OMEP-218 PO ×2 (10:38→10:40)
[2021-09-28 11:00] VITALS: BP 109/67
--- NOTE | 2021-09-29 06:26 | ECGEPIP ---
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
== END 2021-09-28 11:07 | disposition home or self-care (01) ==
LOC: M ED 08:24
DX: K30 Functional dyspepsia (principal); I45.19 Other right bundle-branch block; M10.9 Gout, unspecified; Z79.899 Other long term (current) drug therapy
CPT/HCPCS: 71045; 80048; 80076; 82550; 82553; 83690; 84443; 84484; 85025; 85379; 93005; 93041; 94760; 96374; 99285; C9113

== ENCOUNTER → 2021-10-20 | Outpatient (CLI) | payer OTHER ==
[~2021-10-20] MED LIST changes: +CELE1CAP7 PO; +OMEP-173 PO
== END ==
LOC: M WUC 10:39
PROVIDERS: ATTEND Internal Medicine
DX: M1A.9XX0 Chronic gout, unspecified, without tophus (tophi) (principal)

== ENCOUNTER → 2022-03-18 | Outpatient (CLI) | payer OTHER | LOC: M WUC 09:53 | PROVIDERS: ATTEND Internal Medicine | DX: M1A.9XX0 Chronic gout, unspecified, without tophus (tophi) (principal) ==

== ENCOUNTER → 2022-04-15 | Outpatient (REF) | payer OTHER ==
[2022-04-15 16:35] LABS: BLOOD UREA NITROGEN 16 MG/DL (7-18); CARBON DIOXIDE LEVEL 30 MEQ/L (21-32); CHLORIDE LEVEL 108 MEQ/L (98-107); GLOMERULAR FILTRATION RATE > 60.0 (>60); GLUCOSE, FASTING 111 MG/DL (70-100); POTASSIUM SERUM 4.1 MEQ/L (3.5-5.1); SODIUM LEVEL 144 MEQ/L (136-145)
== END ==
LOC: M WUC 15:45
PROVIDERS: ATTEND Internal Medicine
DX: M1A.9XX0 Chronic gout, unspecified, without tophus (tophi) (principal)